=== PATIENT | male | born 1965 | race Caucasian/White ===

== ENCOUNTER 2025-02-11 11:28 | Emergency (ER) | payer BC, SELFPAY ==
[2025-02-11] VITALS (14 sets, daily range): BP systolic 126–170; BP diastolic 68–107; BMI 36.3
[2025-02-11 11:51] LABS: Hematocrit 47.0 % (39.0-52.0); Hemoglobin 16.5 g/dL (13.0-18.0); Mean Corp Hgb Conc. 35.1 g/dL (33.0-37.0); Mean Corpuscular Volume 82.7 fL (80.0-94.0); Nucleated Red Blood Cells % 0 % (-); Platelet Count 224 10^3/uL (130-400); Red Cell Dist. Width 12.0 % (11.5-14.5)
[2025-02-11 12:06] LABS: ALT (SGPT) 32 U/L (0-50); AST (SGOT) 21 U/L (17-59); Albumin 4.8 g/dl (3.5-5.0); Alkaline Phosphatase 84 U/L (38-126); Blood Urea Nitrogen 12 mg/dl (9-20); Calcium 9.4 mg/dl (8.4-10.2); Carbon Dioxide 22 mmol/L (22-30); Chloride 104 mmol/L (98-107); Glucose 141 mg/dl (70-99); Potassium 3.9 mmol/L (3.5-5.1); Sodium 134 mmol/L (135-145); Total Protein 7.2 g/dl (6.3-8.2); eGFR > 60.00
--- NOTE | 2025-02-11 12:30 | ED.GENMED ---
History of Present Illness
General
Chief Complaint: Headache
Source: patient
Exam Limitations: none
Time Seen by Provider: 02/11/25 12:13
Nursing documentation reviewed up to this point in time: agreed with
History of Present Illness
History of Present Illness:
59-year-old male with a past medical history of hypertension, hyperlipidemia, diabetes who presents to the emergency department for evaluation of headache. Patient reports onset of symptoms yesterday morning and they have been constant since that
time and progressive. He reports pressure sensation behind the right eye gets worse with sneezing or coughing. He has been treating with [id number] medications including Excedrin without relief. He has associated nausea but no vomiting.
Denies any neck pain or stiffness. He denies any change in his vision or speech. Denies any weakness or numbness in extremities. He denies any trauma to the head. He denies similar symptoms in the past.
Review of Systems
Review of Systems
All Other Systems: ROS reviewed and negative except as documented in HPI and ROS
Constitutional: Denies fever
Respiratory: Denies trouble breathing
Cardiac: Denies chest pain
ABD/GI: Reports nausea; Denies abdominal pain or vomiting
: Denies flank pain
Musculoskeletal: Denies neck pain or back pain
Neurological: Reports headache; Denies weakness or numbness
Phy Exam
Physical Exam
Physical Exam:
General: Awake, alert, oriented x3; no acute distress
Head: Normocephalic, atraumatic
Eyes: Conjunctiva normal, EOMI, pupils equal round and reactive to light bilaterally, visual lucia are intact
Throat: Airway intact, handling secretions
Neck: Trachea midline, supple without meningismus
Lungs: Clear to auscultation bilaterally, no wheezing, rales, rhonchi
Heart: Regular rate and rhythm, no murmurs, gallops, or rubs
Abd: Soft, non distended, nontender
Neuro: Cranial nerves intact 2 through 12, speech fluid without dysarthria or aphasia, no limb ataxia, motor and sensory intact in all extremities
Skin: Warm and dry
Extremities: No edema in extremities, warm and well-perfused
Scores
Heart Failure Risk
Heart Failure Risk Score: Not Applicable
Heart Score for Chest Pain Patients
STEMI patient?: Not applicable
Withdrawal Assessment of Alcohol
Withdrawal Assessment Completed?: Not applicable
Course
Orders/Labs/Results
Orders:
Orders
02/11/25 11:33
EKG [Electrocardiogram (*1)] Urgent
Reason for Study: Hypertension, Benign
EKG- Treatment ONCE
02/11/25 11:[address] [CT Head W/o Iv Contrast] Urgent
Comment:
Reason For Exam: headache
02/11/25 11:38
CMP [Comprehensive Metabolic Panel] Urgent
Complete Blood Count/With Diff Urgent
02/11/25 12:29
Nicardipine 40 mg/200 ml [Cardene] 40 mg in 200 ml IV NOW
Initial dose in mg/hr, then titrate:: 5
Titrate to keep:: SBP 120 - 140 mmHg
Titrate by mg/hr:: 2.5 mg/hr
Frequency of titrations (minutes):: 5-15 minutes
Maximum dose in mg/hr:: 15
Begin to taper infusion when:: Remained at goal for 2hrs
Taper by mg/hr:: 2.5 mg/hr
Frequency of taper (minutes) if patient maintains goal:: 15-30 minutes
Taper to off?: Yes
If infusion off & no longer maintaining goal:: Contact Provider
02/11/25 12:54
Levetiracetam Injectable [Keppra] 1,000 mg IV NOW STA
Abnormal Lab Results
02/11/25
11:38
WBC 11.3 H 10^3/uL
(4.8-10.8)
Absolute Neuts (auto) 8.0 H 10^3/uL
(1.4-6.5)
Sodium 134 L mmol/L
(135-145)
Glucose 141 H mg/dl
(70-99)
02/11/25 11:38
02/11/25 11:38
Vital Signs
Initial and Last Documented VS:
Initial Vital Signs
Temp Pulse Resp BP Pulse Ox
36.8 C 78 18 170/107 99
02/11/25 11:30 02/11/25 11:30 02/11/25 11:30 02/11/25 11:30 02/11/25 11:30
Last Documented Vital Signs
Temp Pulse Resp BP Pulse Ox
36.8 C 115 24 158/76 100
02/11/25 11:30 02/11/25 12:51 02/11/25 12:51 02/11/25 12:51 02/11/25 12:51
MDM/Problems Addressed
Differential Diagnosis Includes:
Migraine, tension headache, brain bleed, brain mass
MDM/Problems Addressed:
59-year-old male with a past medical history as noted presents for evaluation of atraumatic headache associated with nausea that started yesterday morning. He arrives hypertensive with a blood pressure of 170/107 but otherwise normal vitals.
Physical exam as noted�notably reassuring neurologic exam. He was sent for lab work including a CBC and a CMP reviewed by me showed no acute abnormalities. His EKG shows a sinus rhythm. Unfortunately his CT head is positive for intraparenchymal
hemorrhage in the right temporal lobe with a component of subarachnoid bleeding as well. Also appears to be a small enhancing mass more posterior in the brain with edema and effacement of the cerebral sulcal. No mass effect, no midline shift. I
had a long discussion with the patient about the diagnosis and need for further evaluation and admission. Will plan to transfer downtown to [facility] per patient's preference. [facility]
In the meantime we will start on nicardipine for aggressive blood pressure control. Will treat with Keppra for seizure prophylaxis.
Discussed case with [facility] transfer center, patient accepted for transfer. Will arrange for transport downtown. In the meantime neurosurgery team [place] agreed with maintaining SBP goal 130-150 on Cardene drip.
Acute Exacerbation and/or Progression of Chronic Illness:
Acutely hypertensive managed with nicardipine
Acute Exacerbation and/or Progression of Chronic Illness: HTN
*Radiology
Radiology exam reviewed: radiology read reviewed
*Pulse Oximetry
SaO2: 99
Oxygen Mode of Delivery: Room air
Patient hypoxic: no (99%)
*EKG
Interpreted by ED Provider?: Yes
Heart Rate: 77
Rate: normal
Rhythm: sinus
[place]: normal axis
Interval: normal interval
QRS Pattern: normal QRS
Ischemia: no ischemia
*Critical Care Note
Total Time (30-74mins, 75-104mins- exclusive of procedures): Not Applicable
Data Reviewed
Source: patient and family
Patient Management
Discussion with other providers: [employer]er [employer]per (Discussed with neurosurgeon at [facility])
Escalation/DeEscalation of care consider admission/obs:
Admission indicated�transfer to tertiary center
ED Attending Note
-
Portions of this chart may have been created with voice recognition software.� Occasional wrong word or��sound alike� substitutions may have occurred due to the inherent limitations of voice recognition software.
Discharge Plan
Departure
Patient Disposition: Acute Care Hospital
Date of Disposition: 02/11/25
Time of Disposition: 12:35
Discharge Problem:
Intraparenchymal hemorrhage of brain
Referrals:
NONE,* [Active, Internal Medicine]
Hospital Transfer
Other hospital: [facility]
I certify that the patient requires transfer: Yes
Discussed case with accepting physician: Dr. Blanca
Reason for transfer: higher level of care and specialties available
Interventions
Interventions:
*Risk Screen - Suicide Last Done: 02/11/25 11:30
*General Assessment Last Done: 02/11/25 11:30
*Neglect/Abuse Screening Last Done: 02/11/25 11:30
*ED COVID-19 Vaccine History Last Done: 02/11/25 11:57
*ED Influenza Vaccine History Last Done: 02/11/25 11:30
ED- Neurological Assessment Last Done: 02/11/25 12:33
Discharge Date and Time
Print Language: ICELANDIC
[2025-02-11] MEDS: CARDENE 200 IV (12:42)
[2025-02-11] MEDS: KEPPRA 1000 MG IV (13:07)
== END 2025-02-11 13:58 | disposition short-term general hospital (02) ==
LOC: EMR 11:28
PROVIDERS: Emergency Medicine; EMERGENCY PHYSICIAN Emergency Medicine; FAMILY PHYSICIAN Nurse Practitioner Gerontology
DX: I61.1 Nontraumatic intracerebral hemorrhage in hemisphere, cortical (principal); E11.9 Type 2 diabetes mellitus without complications; E78.5 Hyperlipidemia, unspecified; I10 Essential (primary) hypertension
CPT/HCPCS: 99285; 96365; 96375; 70450; 80053; 85025; 93005